=== PATIENT | female | born 1995 | race Caucasian/White ===

== ENCOUNTER 2016-09-17 16:16 | Emergency (ER) | payer OTHER ==
[~2016-09-17] VITALS: Ht 162.6 cm; Wt 51.0 kg
[2016-09-17] MEDS ORDERED: IBUP100T53 PO (16:27)
[2016-09-17 17:31] VITALS: BP 132/65
== END 2016-09-17 17:35 | disposition home or self-care (01) ==
LOC: EMS 16:20
DX: H66.92 Otitis media, unspecified, left ear (principal); J06.9 Acute upper respiratory infection, unspecified
CPT/HCPCS: 99283

== ENCOUNTER 2017-10-22 00:53 | Emergency (ER) | payer OTHER ==
[~2017-10-22] VITALS: Ht 162.6 cm; Wt 56.8 kg
[~2017-10-22 00:53] MED LIST: IBUP100T53 PO
[2017-10-22] MEDS ORDERED: AMOX TR/POT CLAV 875 MG/125 MG TABLET PO ONE (04:15)
[2017-10-22 04:29] VITALS: BP 114/63
== END 2017-10-22 05:11 | disposition home or self-care (01) ==
LOC: EMS 00:54
DX: L73.1 Pseudofolliculitis barbae (principal); F12.10 Cannabis abuse, uncomplicated
CPT/HCPCS: 99283

== ENCOUNTER 2018-06-27 23:28 | Emergency (ER) | payer OTHER ==
[~2018-06-27] VITALS: Ht 162.6 cm; Wt 54.5 kg
[2018-06-28 03:19] LABS: APPEARANCE,URINE CLEAR (CLEAR); BILIRUBIN,URINE NEGATIVE (NEGATIVE); GLUCOSE, URINE (UA) NEGATIVE (NEGATIVE); KETONES,URINE NEGATIVE (NEGATIVE); LEUKOCYTE ESTERASE ,URINE NEGATIVE (NEGATIVE); NITRATE,URINE NEGATIVE (NEGATIVE); OCCULT BLOOD,URINE MODERATE (NEGATIVE); PROTEIN,URINE TRACE (NEGATIVE)
[2018-06-28 03:39] LABS: BACTERIA,URINE Few /HPF (None Seen); SQUAMOUS EPITHELIAL CELL,UR Moderate /LPF (None Seen); WBC,URINE 0-2 /HPF (0-5)
[2018-06-28 03:40] LABS: MUCUS,URINE Many LPF (None Seen)
[2018-06-28 03:50] VITALS: BP 118/77
== END 2018-06-28 04:09 | disposition home or self-care (01) ==
LOC: EMS 23:46
DX: T19.2XXA Foreign body in vulva and vagina, initial encounter (principal); F12.90 Cannabis use, unspecified, uncomplicated; X58.XXXA Exposure to other specified factors, initial encounter; Y93.89 Activity, other specified; Y92.89 Other specified places as the place of occurrence of the external cause; Y99.8 Other external cause status

== ENCOUNTER 2019-06-22 19:50 | Emergency (ER) | payer OTHER ==
[~2019-06-22] VITALS: Ht 162.6 cm; Wt 54.5 kg
[2019-06-22 22:08] VITALS: BP 131/63
== END 2019-06-23 | disposition left against medical advice (07) ==
LOC: EMS 19:52
DX: R05 Cough (principal); Z53.21 Procedure and treatment not carried out due to patient leaving prior to being seen by health care provider

== ENCOUNTER 2020-03-12 00:57 | Emergency (ER) | payer OTHER ==
[~2020-03-12] VITALS: Ht 162.6 cm; Wt 54.0 kg
[2020-03-12] MEDS ORDERED: ALPR0.5T8 PO (01:06)
[2020-03-12 01:58] LABS: BASOPHILS % (AUTO) 0.4 % (0.0-2.0); EOSINOPHILS % (AUTO) 1.2 % (1.0-6.0); HEMATOCRIT 39.7 % (36-46); HEMOGLOBIN 13.4 g/dL (12.0-16.0); LYMPHOCYTES # (AUTO) 1.8 K/uL (1.0-4.8); LYMPHOCYTES % (AUTO) 25.3 % (22.0-44.0); MEAN CORPUSCULAR HEMOGLOBIN 29.3 pg (26.0-34.0); MEAN CORPUSCULAR HGB CONC 33.9 G/dL (31.0-37.0); MEAN CORPUSCULAR VOLUME 86 fL (80-100); MONOCYTES # (AUTO) 0.5 K/uL (0.1-1.0); MONOCYTES % (AUTO) 7.3 % (2.0-9.0); NEUTROPHILS # (AUTO) 4.7 K/uL (1.8-7.7); NEUTROPHILS % (AUTO) 65.8 % (40.0-70.0); PLATELET COUNT (AUTO) 204 K/uL (150-450); RED BLOOD CELL COUNT(AUTO) 4.59 MIL/uL (4.00-5.20); RED CELL DISTRIBUTION WIDTH 12.8 % (11.5-14.5)
[2020-03-12 02:03] LABS: ANION GAP 9 mmol/L (8-16); CARBON DIOXIDE 30 mmol/L (22-29); CHLORIDE 105 mmol/L (98-107); CREATININE 0.68 mg/dL (0.60-1.30); GLOMERULAR FILTR. RATE CALC > 60 mL/min (>60); GLUCOSE,RANDOM 113 mg/dL (70-110); POTASSIUM 3.4 mmol/L (3.5-5.1); SODIUM SERUM 144 mmol/L (136-145); UREA NITROGEN, BLOOD 20 mg/dL (7-18)
[2020-03-12 02:11] LABS: ALANINE AMINOTRANSFERASE 22 U/L (12-78); ALBUMIN 3.8 g/dL (3.4-5.0); ALKALINE PHOSPHATASE 66 U/L (46-116); ASPARTATE AMINOTRANSFERASE 14 U/L (15-37); BILIRUBIN,TOTAL 0.4 mg/dL (0.1-1.0); LIPASE 65 U/L (73-393); TOTAL PROTEIN, SERUM 7.1 g/dL (6.4-8.2)
[2020-03-12 02:20] LABS: APPEARANCE,URINE CLOUDY (CLEAR); BILIRUBIN,URINE NEGATIVE (NEGATIVE); GLUCOSE, URINE (UA) NEGATIVE (NEGATIVE); KETONES,URINE TRACE mg/dL (NEGATIVE); LEUKOCYTE ESTERASE ,URINE NEGATIVE (NEGATIVE); NITRATE,URINE NEGATIVE (NEGATIVE); OCCULT BLOOD,URINE NEGATIVE (NEGATIVE); PH,URINE 5.5 (5.0-8.0); PROTEIN,URINE NEGATIVE (NEGATIVE); UROBILINOGEN,URINE 0.2 mg/dL (<=1.0)
[2020-03-12 02:22] LABS: BACTERIA,URINE Rare /HPF (None Seen); RBC,URINE 0-2 /HPF (0-2); SQUAMOUS EPITHELIAL CELL,UR Rare /LPF (None Seen); WBC,URINE 0-2 /HPF (0-5)
[2020-03-12 03:23] LABS: FREE T4 (FREE THYROXINE) 1.05 ng/dL (0.76-1.46); THYROID STIMULATING HORMONE 0.49 uIU/mL (0.36-3.74)
[2020-03-12 04:31] VITALS: BP 97/65
== END 2020-03-12 04:53 | disposition home or self-care (01) ==
LOC: EMS 00:57
DX: R10.2 Pelvic and perineal pain (principal); H60.91 Unspecified otitis externa, right ear; F12.90 Cannabis use, unspecified, uncomplicated
CPT/HCPCS: 76856; 84439; 84443